=== PATIENT | male | born 1995 | race Caucasian/White ===

== ENCOUNTER 2020-11-06 07:56 | Outpatient (CLI) | payer OTHER, SELFPAY ==
--- NOTE | 2020-11-06 12:46 | P.PCNPFT_ITS ---
PFT Interpretation This is a pulmonary function test with pre and post-bronchodilator spirometry, plethysmography and diffusing capacity. The test was performed and results interpreted in accordance with the 2019 and 2005 ATS/ERS Task Force guidelines respectively using the Global Lung Function Initiative-2012 reference equations. Patient demonstrated good effort and c ooperation. Reproducibility criteria were met. The quality of the pre bronchodilator spirometry maneuver was Grade A and post bronchodilator spirometry maneuver was Grade A. Findings: Spirometry: The contour the inspiratory and expiratory flow tracing are normal. The pre bronchodilator FVC is 6.47 L, 113% predicted. The pre bronchodilator FEV1 is 4.70 L, 98% predicted. The FEV1: FVC ratio is 73%. The post bronchodilator FVC is 6.76 L, representing a 4% increase. The post bronchodilator FEV1 is 5.43 L, representing a 15% increase. Plethysmography: The total lung capacity is 7.46 L, 106% predicted. The functional residual capacity is 2.85 L, 83% predicted. The residual volume is 0.99 L, 64% predicted. Diffusing capacity the absolute diffusion capacity is 41.1, 111% predicted. The diffusing capacity corrected for alveolar volume is 6.03, 114% predicted. Impression: The spirometry is normal without evidence of an obstructive abnormality. There is significant improvement after inhaling a single dose of albuterol. The lung volumes are normal. The diffusing capacity is normal. There are no prior studies for comparison PFT Procedure Performed PFT Procedure Performed Spirometry with Pre/Post Bronchodilator Plethysmography (Lung Vol) Diffusing Cap (DLCO)
== END 2020-11-06 07:57 | disposition home or self-care (01) ==
PROVIDERS: PCP Family Medicine; Visit Provider Family Medicine
DX: J45.909 Unspecified asthma, uncomplicated (principal)
CPT/HCPCS: 94060; 94726; 94729